=== PATIENT | female | born 1960 | race African-American/Black ===

== ENCOUNTER 2016-11-26 09:19 | Emergency (ER) | payer OTHER ==
[2016-11-26] MEDS ORDERED: Ketorolac Tromethamine 60 MG/2 ML VIAL ONE (09:47)
[2016-11-26 10:09] LABS: #Basophils 0.1 thou/uL (0.0-0.2); #Eosinphils 0.2 thou/uL (0.0-0.7); #Lymphocytes 2.7 thou/uL (1.20-3.40); #Monocytes 0.6 thou/uL (0.11-0.59); %Basophils 1.6 % (0.0-1.0); %Eosinophils 3.2 % (0.0-10.0); %Monocytes 9.7 % (0.0-10.0); Mean Platelet Volume 8.1 fL (7.4-10.4); Red Blood Cell (RBC) Count 4.79 mill/uL (4.20-5.40); White Blood Cell (WBC) Count 6.6 thou/uL (4.8-10.8)
[2016-11-26 10:22] LABS: ALT (SGPT) 38 U/L (0-55); AST (SGOT) 46 U/L (5-34); Alkaline Phosphatase 72 U/L (40-150); Anion Gap 14 mmol/L (10-20); BUN (Urea Nitrogen) 9 mg/dL (9.8-20.1); Bilirubin, Total 0.7 mg/dL (0.2-1.2); Calc. Creatinine Clearance 0 mL/min (70-130); Calcium 9.5 mg/dL (7.8-10.44); Carbon Dioxide 25 mmol/L (22-29); Chloride 106 mmol/L (98-107); Estimated GFR-MDRD Greater than 90; Globulin 3.8 g/dL (2.4-3.5); Protein, Total 7.9 g/dL (6.0-8.3)
[2016-11-26 10:24] LABS: Troponin I Less than 0.010 ng/mL (< 0.028)
--- NOTE | 2016-11-26 21:42 | RAD ---
CHEST TWO VIEWS 11/26/16 The heart is normal in size. The mediastinum shows no widening or shift. There are streaky linear in filtrates in the lung bases bilaterally that suggests subsegmental atelectasis. Often this can be se e in underlying rib fractures, but none were visible on this study. Dedicated rib films might be nee ded if this is of strong consolidation. There is no pneumothorax or pleural effusion. IMPRESSION: Streaky linear bibasilar infiltrates, presumably atelectasis. POS: HOME
== END 2016-11-26 10:30 | disposition home or self-care (01) ==
LOC: BURERS 09:19
DX: S20.212A Contusion of left front wall of thorax, initial encounter (principal); F20.9 Schizophrenia, unspecified; W07.XXXA Fall from chair, initial encounter
CPT/HCPCS: 36415; 71020; 80053; 82553; 84484; 85025; 93005; 96372; J1885